=== PATIENT | male | born 1960 | race Caucasian/White ===

== ENCOUNTER 2016-10-25 15:05 | Emergency (ER) | payer OTHER ==
[~2016-10-25] VITALS: Ht 165.1 cm; Wt 95.5 kg
[~2016-10-25 15:05] MED LIST: ASPI-535 PO; METO1TAB13 PO
[2016-10-25] MEDS ORDERED: SOD CHLORIDE 0.9% 1,000 ML IV STA (15:08)
[2016-10-25 15:09] VITALS: Ht 165.1 cm; Wt 95.5 kg
[2016-10-25 15:29] LABS: ADD SCAN DIFF NO
[2016-10-25] MEDS ORDERED: ONDANSETRON 4 MG INJ IV ONE (15:30)
[2016-10-25] MEDS ORDERED: morphine 2 MG INJ IV ONE (15:30)
[2016-10-25 15:31] LABS: BASOPHILS % 0.5 % (0.0-2.0); EOSINOPHILS # 0.5 10^3/ul (0.0-0.5); EOSINOPHILS % 5.8 % (0.0-7.0); HEMATOCRIT 41.4 % (42.0-52.0); HEMOGLOBIN 15.5 g/dl (14.0-18.0); LYMPHOCYTES % 24.1 % (15.0-51.0); MEAN CORPUSCULAR HEMOGLOBIN 32.1 pg (29.0-33.0); MEAN CORPUSCULAR HGB CONC 37.4 g/dl (32.0-37.0); MEAN CORPUSCULAR VOLUME 85.7 fl (82.0-101.0); MONOCYTE # 0.7 10^3/ul (0.3-0.9); MONOCYTES % 8.2 % (0.0-11.0); NEUTROPHIL # 5.1 10^3/ul (1.6-7.5); NEUTROPHILS % 60.2 % (39.0-77.0); PLATELET COUNT 195 10^3/UL (140-415); RED BLOOD COUNT 4.83 10^6/ul (4.70-6.10); RED CELL DISTRIBUTION WIDTH 11.9 % (11.5-14.5); WHITE BLOOD COUNT 8.4 10^3/ul (4.8-10.8)
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
[2016-10-25 15:55] LABS: ALBUMIN 4.6 g/dl (3.3-4.9); BILIRUBIN,INDIRECT 0.4 mg/dl (0-1.1); BILIRUBIN,TOTAL 0.4 mg/dl (0.2-1.3); CALCIUM 9.2 mg/dl (8.4-10.2); CREATININE 0.79 mg/dl (0.61-1.24); POTASSIUM 3.5 mmol/L (3.5-5.1); TOTAL PROTEIN 7.5 g/dl (6.1-8.1)
[2016-10-25 16:00] LABS: INR 0.94; PROTIME 12.6 Sec (12.2-14.2)
[2016-10-25] MEDS ORDERED: IOHEXOL 300MG/ML 150 ML BTL ONE (16:21)
[2016-10-25] MEDS ORDERED: SOD CHLORIDE 0.9% 100 ML ONE (16:21)
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
[2016-10-25] MEDS ORDERED: HYDR-902 PO (17:11)
[2016-10-25] MEDS ORDERED: IBUP-1542 PO (17:11)
[2016-10-25 17:42] VITALS: BP 143/100; PULSE 100; RESP 17; TEMP 98.6
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
== END 2016-10-25 17:40 | disposition home or self-care (01) ==
LOC: E/R 15:05
DX: S29.9XXA Unspecified injury of thorax, initial encounter (principal); R40.2142 Coma scale, eyes open, spontaneous, at arrival to emergency department; R40.2252 Coma scale, best verbal response, oriented, at arrival to emergency department; I10 Essential (primary) hypertension; R07.9 Chest pain, unspecified; V43.52XA Car driver injured in collision with other type car in traffic accident, initial encounter
CPT/HCPCS: 71010; 71260; 73130; 74177; 80048; 80076; 85025; 85610; 85730; 93005; 96374; 96375; J2270; J2405; J7030; Q9967; Z7502; Z7610